=== PATIENT | male | born 1955 ===

== ENCOUNTER → 2018-05-01 21:18 | Outpatient (REF) | payer OTHER, SELFPAY ==
[2018-05-01 22:33] LABS: Add Manual Diff / Slide Review NO; Basophils Percent Auto 0.4 % (0-2); Eosinophils Percent Auto 0.7 % (2-4); Hematocrit 47.7 % (41-53); Hemoglobin 16.3 g/dL (13.5-17.5); Lymphocytes Percent Auto 13.9 % (25-40); Mean Corpuscular HGB Conc 34.1 % (30-36); Mean Corpuscular Hemoglobin 32.3 PG (26-34); Mean Corpuscular Volume 94.7 fL (80-100); Monocytes Percent Auto 7.5 % (3-14); Neutrophils Absolute Auto 7800 /uL (1500-7000); Neutrophils Percent Auto 77.5 % (50-75); Platelet Count 248 X10^3/uL (150-400); Red Blood Cell Count 5.04 X10^6/uL (4.5-5.9); Red Cell Distribution Width 14.9 % (11.6-14.8)
[2018-05-04 19:15] LABS: Estradiol 15 pg/mL (< 40)
[2018-05-06 14:07] LABS: Dehydroepiandrosterone Sulfate 27 mcg/dL (38-313)
[2018-05-06 14:37] LABS: PSA Total 1.53 ng/mL (< 4.01)
[2018-05-09 08:33] LABS: Testosterone Free 103.7 pg/mL (35.0-155.0); Testosterone Total 627 ng/dL (250-1100)
== END ==
LOC: LAB 21:18
PROVIDERS: Visit Provider Family Medicine
DX: E29.1 Testicular hypofunction (principal)
CPT/HCPCS: 36415; 82627; 82670; 84153; 84154; 84402; 84403; 85025